=== PATIENT | female | born 1965 | race Caucasian/White ===

== ENCOUNTER 2019-02-20 14:20 | Observation (INO) ==
[2019-02-20] MEDS: D5 1/2 NS 1,000 ML IV SCH (15:39)
[2019-02-20] MEDS: DILAUDID IV PRN ×3 (15:59→23:59)
--- NOTE | 2019-02-20 16:13 | EKG Report ---
Test Performed on : 02/20/2019 3:01:26 PM Test Reason : PHLEGMON Blood Pressure : / mmHG Vent. Rate : 072 BPM Atrial Rate : 072 BPM P-R Int : 168 ms QRS Dur : 086 ms QT Int : 384 ms P-R-T Axes : 061 035 045 degrees QTc Int : 420 ms Normal sinus rhythm. Normal ECG When compared with ECG of 08-DEC-2017 15:10, No significant change was found Confirmed by Kalpesh Espana MD ([id number]) on 02/21/2019 4:50:11 PM
[2019-02-20 16:31] LABS: HEMATOCRIT 36.8 % (37.0-47.0); HEMOGLOBIN 11.8 g/dL (12.0-16.0); MCHC 32.1 g/dL (33-37); MCV 87.4 FL (81-99); MPV 10.8 FL (7.4-10.4); RBC 4.21 XMIL (4.2-5.4); RDW 16.3 % (11.5-14.5); WBC 7.45 X1000 (4.8-10.8)
[2019-02-20 16:48] LABS: AGAP 13; BUN 23 mg/dL (8-22); CALCIUM 9.6 mg/dL (8.8-10.2); CHLORIDE 103 mmol/L (98-107); COSMO 281; CREATININE 0.7 mg/dL (0.5-0.9); ESTIMATED GFR > 60; GLUCOSE 99 mg/dL (70-104); SODIUM 139 mmol/L (136-145); TCO2 23 mmol/L (25-35)
[2019-02-20] MEDS: NICODERM PATCH TD SCH (17:31)
[2019-02-20] MEDS: GLUCOPHAGE PO SCH (17:38)
[2019-02-20] MEDS: PRAVACHOL PO SCH (19:54)
[2019-02-20] MEDS: PHENERGAN IV PRN ×2 (19:54→23:59)
[2019-02-20] MEDS: DESYREL PO SCH (19:55)
[2019-02-20] MEDS: DEPAKOTE PO SCH (19:56)
[2019-02-20] MEDS: ATARAX PO SCH (19:56)
[2019-02-20] MEDS: PRILOSEC PO SCH (19:56)
[2019-02-20 20:00] LABS: URINE SOURCE CLEAN CATCH
[2019-02-20 20:04] LABS: BILIRUBIN URINE NEGATIVE (NEGATIVE); BLOOD URINE NEGATIVE (NEGATIVE); COLOR YELLOW; GLUCOSE URINE NEGATIVE (NEGATIVE); KETONE URINE NEGATIVE (NEGATIVE); LEUKOCYTES URINE NEGATIVE (NEGATIVE); NITRITE URINE NEGATIVE (NEGATIVE); PROTEIN URINE NEGATIVE (NEGATIVE); SP GRAVITY URINE 1.014; TURBIDITY URINE CLEAR (CLEAR); UROBILINOGEN URINE NORMAL (NORMAL)
[2019-02-20 20:05] LABS: UR EPITHELIAL CELLS <10 /HPF (<10); URINE BACTERIA NEGATIVE /HPF; URINE RBC <10 /HPF (<10); URINE WBC <10 /HPF (<10)
[2019-02-21] MEDS: ATARAX PO SCH (01:53)
[2019-02-21] MEDS: DEPAKOTE PO SCH ×2 (01:53→08:24)
[2019-02-21] MEDS: DESYREL PO SCH (01:53)
[2019-02-21] MEDS: PRILOSEC PO SCH ×2 (01:54→06:14)
[2019-02-21] MEDS: PRAVACHOL PO SCH (01:54)
[2019-02-21] MEDS: DILAUDID IV PRN ×3 (03:58→11:51)
[2019-02-21] MEDS: D5 1/2 NS 1,000 ML IV SCH (03:58)
[2019-02-21] MEDS: PHENERGAN IV PRN ×3 (03:58→11:52)
[2019-02-21] MEDS: CARAFATE PO SCH ×2 (06:14→11:26)
[2019-02-21] MEDS: SODIUM CHLORIDE 0.9% INJ PRN ×2 (08:17→11:51)
[2019-02-21] MEDS: NICODERM PATCH TD SCH (08:24)
[2019-02-21] MEDS: GLUCOPHAGE PO SCH ×2 (08:24→11:26)
[2019-02-21] MEDS ORDERED: ZOLOFT PO SCH (09:00)
[2019-02-21] MEDS ORDERED: PRINIVIL PO SCH (09:00)
[2019-02-21] MEDS ORDERED: ATARAX PO SCH (09:00)
--- NOTE | 2019-02-21 10:34 | OPERATIVE NOTE ---
PROCEDURE DATE: 02/21/2019 PREOPERATIVE DIAGNOSES: 1. History of multiple gastric operations, most recent was a Julian-en-Y gastrojejunostomy. Now with continued upper abdominal pain and some dysphagia. She has continued to smoke a pack to a pack and a half a day and drink 6 to 8 beers a day. 2. She also has a history of hepatitis C. PROCEDURE PERFORMED: Esophagogastroduodenoscopy with biopsy. DESCRIPTION OF PROCEDURE: The patient was brought to the GI lab. After satisfactory IV sedation with IV propofol via her port, a flexible gastroscope was introduced transorally without difficulty. Esophagus was normal down to 37 cm at the GE junction. There were no strictures, varices, or ulcerations. The stomach revealed the stomach remnant to be somewhat inflamed at the gastrojejunostomy anastomosis. An H. pylori biopsy was obtained. The scope was introduced through the anastomosis, which was widely patent. The Julian-en-Y limb was seen and not stenotic either. The scope was brought back into the stomach remnant. An H. pylori biopsy was obtained. Retroflexion revealed no ulceration at the GE junction or varices. The scope was removed. The patient tolerated the procedure well. Once again, is admonished about her tobacco and alcohol use. She will be seen in the office in 1 to 2 weeks' time. cc: Lenny Larios MD
[2019-02-21 12:25] VITALS: BP 152/87
== END 2019-02-21 12:36 | disposition home or self-care (01) ==
LOC: DIRADM → 4N 14:32
PROVIDERS: ADMIT Surgery; ATTEND Surgery
CPT/HCPCS: 80048; 81001; 85027; 88305; 88312; 93005; 93010; A9270; J1170; J2550

== ENCOUNTER 2019-08-21 15:06 | Observation (INO) ==
--- NOTE | 2019-08-21 17:28 | Diag Imaging Result Doc PS360 ---
EXAM: CHEST-PORTABLE HISTORY: preop TECHNIQUE: Single view COMPARISON: 12/08/2017 FINDINGS: There is a right subclavian portacatheter. No pneumothorax. No cardiomegaly. No pulmonary edema. No pleural effusions identified. There is a small infiltrate in the right upper lobe. IMPRESSION: Small right upper lobe infiltrate Electronically signed by Klever Cummins 08/21/2019 5:26 PM
--- NOTE | 2019-08-21 17:56 | EKG Report ---
Test Performed on : 08/21/2019 5:29:03 PM Test Reason : preop Blood Pressure : / mmHG Vent. Rate : 076 BPM Atrial Rate : 076 BPM P-R Int : 166 ms QRS Dur : 086 ms QT Int : 398 ms P-R-T Axes : -02 009 -01 degrees QTc Int : 447 ms Normal sinus rhythm. with sinus arrhythmia. Normal ECG When compared with ECG of 20-FEB-2019 15:01, T wave inversion now evident in Inferior leads Confirmed by Benedicto PICKENS, Juan Canales ([id number]) on 08/22/2019 10:20:41 AM
[2019-08-21] MEDS ORDERED: SODIUM CHLORIDE 0.9% INJ SCH (18:00)
[2019-08-21] MEDS ORDERED: PROTONIX IV SCH (18:00)
[2019-08-21] MEDS ORDERED: D5 1/2 NS 1,000 ML IV SCH (18:00)
[2019-08-21 18:39] LABS: BASO# 0.04 X1000 (0.0-0.2); BASO% 0.3 % (0.0-0.8); EOS# 0.14 X1000 (0.0-0.7); EOS% 1.1 % (0.0-10.0); HEMATOCRIT 35.2 % (37.0-47.0); HEMOGLOBIN 10.9 g/dL (12.0-16.0); IMM GRAN# 0.07 X1000 (0.0-0.04); IMM GRAN% 0.5 % (0.0-0.5); LYMPH# 1.88 X1000 (1.2-3.4); LYMPH% 14.7 % (20.5-51.1); MCH 26.8 PG (27-31); MCV 86.7 FL (81-99); MONO# 1.09 X1000 (0.11-0.59); MONO% 8.5 % (1.7-9.3); MPV 9.6 FL (7.4-10.4); NEUT# 9.55 X1000 (1.4-6.5); NEUT% 74.9 % (42.2-75.2); PLT 315 X1000 (130-400); RBC 4.06 XMIL (4.2-5.4); WBC 12.77 X1000 (4.8-10.8)
[2019-08-21] MEDS: DILAUDID IV PRN ×2 (18:43→22:36)
[2019-08-21] MEDS ORDERED: SODIUM CHLORIDE 0.9% INJ PRN (18:50)
[2019-08-21] MEDS: PHENERGAN IV PRN (19:10)
[2019-08-21 19:12] LABS: AGAP 14; ALB/GLOB RATIO 1.5; ALBUMIN 3.8 g/dL (3.5-5.0); ALKALINE PHOSPHATASE 91 U/L (32-104); BUN 13 mg/dL (8-22); CALCIUM 8.8 mg/dL (8.8-10.2); CHLORIDE 98 mmol/L (98-107); COSMO 274; CREATININE 0.7 mg/dL (0.5-0.9); ESTIMATED GFR > 60; GLUCOSE 174 mg/dL (70-104); GOT 11 U/L (10-30); GPT 6 U/L (10-36); SODIUM 135 mmol/L (136-145); TCO2 23 mmol/L (25-35); TOTAL PROTEIN 6.4 g/dL (6.3-8.3)
[2019-08-21 19:42] LABS: URINE SOURCE CLEAN CATCH
[2019-08-21 19:45] LABS: BILIRUBIN URINE NEGATIVE (NEGATIVE); BLOOD URINE MODERATE (NEGATIVE); COLOR YELLOW; GLUCOSE URINE NEGATIVE (NEGATIVE); KETONE URINE TRACE mg/dL (NEGATIVE); LEUKOCYTES URINE NEGATIVE (NEGATIVE); NITRITE URINE NEGATIVE (NEGATIVE); PH URINE 6.5; PROTEIN URINE TRACE mg/dL (NEGATIVE); SP GRAVITY URINE 1.024; TURBIDITY URINE CLEAR (CLEAR); UR EPITHELIAL CELLS <10 /HPF (<10); URINE BACTERIA NEGATIVE /HPF; URINE RBC <10 /HPF (<10); URINE WBC <10 /HPF (<10); UROBILINOGEN URINE NORMAL (NORMAL)
[2019-08-21] MEDS ORDERED: ATARAX PO PRN (21:15)
[2019-08-21] MEDS ORDERED: ZOFRAN PO PRN (21:15)
[2019-08-22] MEDS: CARAFATE PO SCH ×3 (01:25→10:43)
[2019-08-22] MEDS: PHENERGAN IV PRN ×3 (01:26→12:19)
[2019-08-22] MEDS: DILAUDID IV PRN ×5 (01:27→12:19)
[2019-08-22] MEDS ORDERED: ADVAIR 250/50 DISKUS INH SCH (07:30)
[2019-08-22] MEDS ORDERED: PREMPRO PO SCH (09:00)
[2019-08-22] MEDS ORDERED: PRINIVIL PO SCH (09:00)
[2019-08-22] MEDS ORDERED: BRILINTA PO SCH (09:00)
[2019-08-22] MEDS ORDERED: DEPAKOTE PO SCH (09:00)
[2019-08-22] MEDS ORDERED: LIPITOR PO SCH (09:00)
[2019-08-22] MEDS ORDERED: NEURONTIN PO SCH ×2 (09:00→21:00)
[2019-08-22] MEDS ORDERED: ZOLOFT PO SCH (09:00)
[2019-08-22] MEDS ORDERED: DESYREL PO SCH (09:00)
[2019-08-22] MEDS ORDERED: PREMARIN PO SCH (09:00)
[2019-08-22] MEDS ORDERED: PROVERA PO SCH (09:00)
[2019-08-22] MEDS: GLUCOPHAGE PO SCH ×2 (10:43→13:12)
[2019-08-22] MEDS ORDERED: DIPRIVAN 1% ONE (11:00)
[2019-08-22] MEDS ORDERED: XYLOCAINE-MPF 2% ONE (11:00)
[2019-08-22 13:15] VITALS: BP 136/78
--- NOTE | 2019-08-22 18:43 | OPERATIVE NOTE ---
PROCEDURE DATE: 08/22/2019 PREOPERATIVE DIAGNOSIS: 1. Abdominal pain. 2. History of multiple gastric operations. The most recent being a Julian-en-Y revision. PROCEDURE: Esophagogastroduodenoscopy. POSTOPERATIVE DIAGNOSIS: 1. Gastritis. 2. No marginal ulcers seen. PROCEDURE IN DETAIL: The patient brought to the GI lab after satisfactory IV sedation with propofol and anesthesia standby. Flexible gastroscope was introduced without difficulty. Esophagus was normal down to 37 cm at which point the stomach was entered. The gastric remnant is erythematous, but without ulcerations being seen and there was streaky bile. The Julian-en-Y anastomosis was widely patent with no marginal ulcers seen. The scope was retroflexed. There was no ulceration at the lesser curve or the GE junction. The scope was removed. The patient tolerated the procedure well. She will be admonished about her tobacco once again, and go home on Prilosec and Carafate. cc: Lenny Larios MD
== END 2019-08-22 13:53 | disposition home or self-care (01) ==
LOC: DIRADM 15:06 → INTOOBSV 15:06 → EDIPHOLD 16:19 → 4N 20:53
PROVIDERS: ADMIT Surgery; ATTEND Surgery